=== PATIENT | female | born 1995 | race Caucasian/White ===

== ENCOUNTER 2017-06-29 06:15 | Emergency (ER) | payer BC ==
[~2017-06-29] VITALS: Ht 157.5 cm; Wt 49.9 kg
[2017-06-29 06:20] VITALS: BP 118/62
[2017-06-29] MEDS ORDERED: LIDOCAINE /MPF 1% VIAL 5 ML VIAL ONE (06:54)
[2017-06-29] MEDS ORDERED: LIDOCAINE 0.5% HCL 50 ML VIAL IJ ONE (07:00)
--- NOTE | 2017-06-29 07:03 | NUR ---
REPORT GIVEN TO JOSEPH LEPE FOR ANNALISA.
--- NOTE | 2017-06-29 07:20 | NUR ---
DR. TURCIOS AT BEDSIDE FOR LAC REPAIR.
== END 2017-06-29 07:42 | disposition home or self-care (01) ==
LOC: ER 06:17
DX: S61.011A Laceration without foreign body of right thumb without damage to nail, initial encounter (principal); W22.8XXA Striking against or struck by other objects, initial encounter; Y93.89 Activity, other specified; Y92.89 Other specified places as the place of occurrence of the external cause; Y99.9 Unspecified external cause status
CPT/HCPCS: 12001; 99283; A4606; A6402 ×3; J3490; Z7610